=== PATIENT | male | born 1945 | race Caucasian/White ===

== ENCOUNTER → 2019-03-12 | Outpatient (CLI) | payer OTHER, MEDICAID ==
--- NOTE | 2019-03-12 17:26 | RAD ---
Chest, 2 views, 03/12/2019: HISTORY: Cough, abnormal breath sounds No previous chest radiographs are available at this time for comparison purposes. A right sided dialysis type catheter extends into the inferior aspect of the superior vena cava. The heart is at the upper limits of normal in size. There is calcific plaquing the aorta. There is mild interstitial prominence in the lower chest bilaterally. No consolidating infiltrate is seen. Blunting of the right lateral costophrenic angle may be due to scarring or a small amount pleural fluid. The posterior costophrenic angles were not completely included on the lateral view. IMPRESSION: 1. Borderline cardiomegaly and aortic atherosclerosis. 2. Mild interstitial prominence in the lower chest suggests fibrosis versus mild interstitial edema. 3. Mild blunting of the right lateral costophrenic angle. Electronically signed by: Ortiz Gonzalez MD (03/12/2019 5:23 PM) [facility]
== END | disposition home or self-care (01) ==
LOC: RAD 14:26
PROVIDERS: ATTEND Internal Medicine Hematology & Oncology
DX: I70.0 Atherosclerosis of aorta (principal); I51.7 Cardiomegaly; Z99.2 Dependence on renal dialysis
CPT/HCPCS: 71046